=== PATIENT | male | born 1975 | race Caucasian/White ===

== ENCOUNTER 2023-09-01 14:02 | Inpatient (IN) ==
--- NOTE | 2023-09-01 14:13 | ED Triage Note ---
Date of Service September 01, 2023 Provider in Triage Author: Kiki Álvarez History of Present Illness This patient was briefly evaluated while in triage. An abbreviated physical exam was performed. This patient is a 48-year-old Male who presents to the ED for evaluation hx of sarcoidosis illness started this weekend-"head cold" "I feel like I have pneumonia" SOB, pulse ox at home drops into 70s with exertion had some leftover steroids that he started no MD currently, no medications Physical Exam GENERAL: NAD, oxygen 86-90% CARDIOVASCULAR: RRR RESPIRATORY: BS diminished, with wheezes and rhonchi throughout ABDOMEN: BS x 4. Nontender to palpation. Initial orders for labs and / or imaging were placed and patient was placed in the waiting area until a bed is available. Please see further documentation for the full ED course.
[2023-09-01 14:44] LABS: Basophils # (auto) 0.01 K/uL (0.00-0.20); Basophils % (auto) 0.1 %; Eosinophils # (auto) 0.05 K/uL (0.00-0.50); Eosinophils % (auto) 0.7 %; Hematocrit (blood only) 48.9 % (42.0-52.0); Hemoglobin 15.7 g/dl (14.0-18.0); Immature Granulocytes # (auto) 0.07 K/uL (0.01-0.20); Lymphocytes # (auto) 0.78 K/uL (1.20-3.40); Lymphocytes % (auto) 10.8 %; Mean Corpuscular Hemoglobin 27.4 pg (25.0-34.0); Mean Corpuscular Hgb Conc 32.1 g/dL (32.0-36.0); Mean Corpuscular Volume 85.5 fL (80.0-100.0); Mean Platelet Volume 9.7 fL (9.4-12.4); Monocytes % (auto) 5.5 %; Neutrophils # (auto) 5.92 K/uL (1.40-6.50); Neutrophils % (auto) 81.9 %; Platelet Count 224 K/uL (130-400); RDW Coefficient of Variation 13.9 % (11.5-14.5); RDW Standard Deviation 42.5 fL (36.4-46.3); Red Blood Count 5.72 M/uL (4.70-6.10); White Blood Count 7.23 K/ul (4.8-10.8)
[2023-09-01 15:16] LABS: Partial Thromboplastin Time 29 Seconds (21-31); Prothrombin Time 11.1 Seconds (9.0-12.0)
[2023-09-01 15:30] LABS: Alanine Aminotransferase 21 U/L (7-52); Albumin Globulin Ratio 1.4 (0.9-2); Albumin Level 4.6 gm/dl (3.4-5.0); Alkaline Phosphatase 67 U/L (34-104); Anion Gap 7 (3-11); BUN Creatinine Ratio 15.7 (10-20); Bilirubin,Total 0.5 mg/dl (0.2-1.0); Blood Urea Nitrogen 18 mg/dl (6-23); Calcium 9.1 mg/dl (8.6-10.3); Carbon Dioxide 28 mmol/L (21-32); Chloride 105 mmol/L (98-107); Creatinine Clr Calc Pharmacy 112.6 ml/min; Est GFR (African American) 85.5 ml/min; Est GFR (Non-African American) 73.8 ml/min; Globulin 3.2 gm/dl (2.5-4.0); Glucose 96 mg/dl (70-99(Fasting)); Sodium 140 mmol/L (136-145); Total Protein 7.8 gm/dl (6.0-8.3); Troponin I High Sensitivity 9.3 pg/ml (0-20)
[2023-09-01 15:37] LABS: Adenovirus PCR Not Detected (NotDetected); Bordetella parapertussis PCR Not Detected (NotDetected); Bordetella pertussis PCR Not Detected (NotDetected); Chlamydia pneumoniae PCR Not Detected (NotDetected); Coronavirus 229E PCR Not Detected (NotDetected); Coronavirus CoV-2 (COVID19)PCR Not Detected (NotDetected); Coronavirus HKU1 PCR Not Detected (NotDetected); Coronavirus NL63 PCR Not Detected (NotDetected); Coronavirus OC43PCR Not Detected (NotDetected); Human Metapneumovirus PCR Not Detected (NotDetected); Influenza A PCR Not Detected (NotDetected); Influenza B PCR Not Detected (NotDetected); Mycoplasma pneumoniae PCR Not Detected (NotDetected); Parainfluenza Virus 1 PCR Not Detected (NotDetected); Parainfluenza Virus 2 PCR Not Detected (NotDetected); Parainfluenza Virus 3 PCR Not Detected (NotDetected); Parainfluenza Virus 4 PCR Not Detected (NotDetected); Respiratory Syncytial VirusPCR Not Detected (NotDetected); Rhinovirus/Enterovirus PCR Not Detected (NotDetected)
[2023-09-01] MEDS: OPTIRAY 320 125ml IV ONE (15:47)
--- NOTE | 2023-09-01 16:22 | CT Scan Report ---
CT angio chest PE protocol CT DOSE: 1377.7 mGy.cm HISTORY: 48 years-old Male with Dyspnea, hx of sarcoidsis. Acute shortness of breath TECHNIQUE: Multiple CTA images of the chest were obtained after the intravenous administration of 117 ml Optiray. Coronal and sagittal MIPS were obtained from the axial data set and were submitted for review. All measurements were obtained according to NASCET criteria. A dose lowering technique was u tilized adhering to the principles of ALARA. COMPARISON: None. FINDINGS: CTA: The heart is normal in size. No pericardial effusion. Unremarkable thoracic aorta. No central pulmona ry emboli. The segmental and subsegmental branches are not well visualized secondary to contrast bolu s timing and respiratory motion artifact. CT CHEST: Unremarkable thyroid. Calcified mediastinal and hilar lymph nodes. Calcified pleural plaque of the ri ght lung base. No pneumothorax or pleural effusion. Bronchial wall thickening with bibasilar mucous p lugging. Scattered bilateral tree-in-bud nodules are most pronounced within the right lower lobe. The lungs are suboptimally evaluated secondary to respiratory motion artifact. 6 mm solid nodule within the left upper lobe is noted on image 191. Several additional scattered solid pulmonary nodules measu re up to 4-5 mm. Hepatomegaly with hepatic steatosis. No acute upper abdominal abnormality. Unremarkable soft tissues. No acute fracture. IMPRESSION: 1. Limited exam as above. No central pulmonary emboli identified. 2. Bronchial wall thickening with mucus plugging suggestive of bronchitis. 3. Bilateral scattered tree-in-bud and centrilobular nodules are likely infectious or inflammatory. I ndividual scattered solid pulmonary nodules measure up to 6 mm. Three-month follow-up chest CT recomm ended. 4. Calcified lymph nodes compatible with chronic granulomatous disease. ACT 112: Negative or not required by law. The above report was generated using voice recognition software. It may contain grammatical, syntax o r spelling errors. Electronically signed by: Devonte Arnold M.D. 09/01/2023 4:20 PM
--- NOTE | 2023-09-01 18:22 | Emergency Department Note ---
Impression & Plan Acute respiratory failure with hypoxia, Bronchitis ED Provider Note NAME: YOHANA HOLLINS AGE: 48 SEX: M : 1975 ARRIVES VIA: Walk-In INFORMANT: Patient, ED PROVIDER(S): Reggie Hawkins MD CHIEF COMPLAINT: Shortness of breath, congestion HPI: This is a 48-year-old male history of sarcoidosis presenting for shortness of breath. Patient notes that since Wednesday, 5+ days ago, he began having symptoms of congestion, rhinorrhea and cough. He notes that this and previously worsening where he is having exertional dyspnea. He does have a home pulse ox due to the sarcoidosis diagnosis and knows that when he walks around over the past 1 to 2 days his oxygen level drops into the low to mid 80s. He is extremely winded when he walks around. Otherwise he has no chest pain, pleurisy. He notes this felt like his previous pneumonia and/or bronchitis so he began taking leftover levofloxacin and 20 mg of prednisone for the past 2 days. Does not improve his symptoms. ROS: See above HPI for pertinent positives & negatives. A total of 10 systems reviewed and were otherwise negative. PAST MEDICAL HISTORY: See Below PAST SURGICAL HISTORY: See Below FAMILY HISTORY: See Below SOCIAL HISTORY: See Below HOME MEDICATIONS: See Below ALLERGIES: See Below VITALS: See Below PHYSICAL EXAMINATION: General: resting comfortably in no acute distress Head: Normocephalic and atraumatic Eyes: Normal inspection, extraocular muscles intact Ear, nose, throat: Normal external exam Neck: Normal range of motion Respiratory: slight wheezing in all lung lawrence Cardiovascular: Regular rate/rhythm, no murmur GI: soft, nontender, no guarding or rebound Extremities: nontender, moves all extremities Neuro: The patient awake and alert, appropriately conversive, no focal deficits, symmetric faces Skin: Warm, dry, and intact MEDICAL DECISION MAKING: This is a 48-year-old male [facility] history of sarcoidosis presenting for shortness of breath. Workup was Initially started at triage -ECG independently interpreted by me with normal sinus rhythm, rate of 95, first-degree AV block, IN 2018, normal QRS, normal QTc, no ST segment elevations consistent with STEMI criteria -Laboratories reviewed showing no leukocytosis or anemia. Lites is within normal limits. No transaminitis. -Viral panel negative -Patient CTA that does not reveal pulmonary embolism but does reveal signs of bronchitis as well as infectious/inflammatory tree-in-bud opacities. Patient made aware of his incidental findings as well -i ambulated the patient myself around the ER patient dropped down to 82% while walking on a pulse oximeter. He was dyspneic during this time Given albuterol treatment here as well as methylprednisolone 125 mg IV -Patient require admission at this time for his shortness of breath, hypoxia, bronchitis. Differential diagnosis: Pneumonia, bronchitis, PE, dissection, ACS ER treatment provided: See below Diagnostics interpreted by me: ECG: See above Cardiac Monitoring: An order was placed for continuous cardiac monitoring. The monitor shows a rate of 97 with sinus rhythm. Laboratory studies: As stated above and show below. Imaging studies: See below. Past Med/Surg History Social History Smoking Status: Former smoker Hx Alcohol Use: Yes Alcohol type: beer Hx Substance Use: No Preferred Language: Albanian Communication Ability: Effective Soccer Commentator Required: No Beliefs That Will Affect Care: None Current Living Situation: Family Other Information That Helps Us Care for You: No Feels Safe at Home: Yes Safety Concerns: Feels Safe At This Time Allergies Allergies Allergy/AdvReac Type Severity Reaction Status Date / Time No Known Allergies Allergy Verified 09/01/23 20:56 Home Meds Home Medications Medication Instructions Recorded Confirmed No Known Home Medications 09/01/23 09/01/23 Results & Data (ED) Vital Signs Vital Signs - 24 hr 09/01/23 14:12 09/01/23 14:14 09/01/23 18:28 Temperature 37.2 C Temperature Source Temporal Artery Scan Pulse Rate 105 H 89 Pulse Rate from SpO2 Sensor Respiratory Rate 18 27 H Respiratory Effort / Characteristics Non-Labored Non-Labored Respiratory Depth Normal Normal Respiratory Pattern Regular Regular Blood Pressure 185/74 H Blood Pressure Mean 111 Pulse Oximetry 88 L 94 Oxygen Delivery Method Room Air Room Air Nasal Cannula Oxygen Flow Rate 2 Sepsis Recent Fever Within 48 Hours No Sepsis New/Unexplained Change in Mental Status N/A Sepsis Action Taken by Nursing No Action Required Oxygen Flow Rate - Titration Pulse Oximetry Post Tiitration 09/01/23 18:29 09/01/23 18:29 09/01/23 18:30 Temperature Temperature Source Pulse Rate 92 H 94 H Pulse Rate from SpO2 Sensor 90 Respiratory Rate 17 Respiratory Effort / Characteristics Respiratory Depth Respiratory Pattern Blood Pressure 157/104 H Blood Pressure Mean 121 Pulse Oximetry 88 L 94 Oxygen Delivery Method Nasal Cannula Oxygen Flow Rate 0 Sepsis Recent Fever Within 48 Hours Sepsis New/Unexplained Change in Mental Status Sepsis Action Taken by Nursing Oxygen Flow Rate - Titration 2 Pulse Oximetry Post Tiitration 94 09/01/23 19:00 Temperature Temperature Source Pulse Rate 88 Pulse Rate from SpO2 Sensor 86 Respiratory Rate 15 Respiratory Effort / Characteristics Respiratory Depth Respiratory Pattern Blood Pressure 141/93 H Blood Pressure Mean 109 Pulse Oximetry 91 Oxygen Delivery Method Nasal Cannula Oxygen Flow Rate 2 Sepsis Recent Fever Within 48 Hours Sepsis New/Unexplained Change in Mental Status Sepsis Action Taken by Nursing Oxygen Flow Rate - Titration Pulse Oximetry Post Tiitration Laboratory Data 09/01/23 14:24 09/01/23 18:13 Lab Results 09/01/23 09/01/23 09/01/23 Range/Units 14:24 18:13 18:14 WBC 7.23 (4.8-10.8) K/ul RBC 5.72 (4.70-6.10) M/uL Hgb 15.7 (14.0-18.0) g/dl Hct 48.9 (42.0-52.0) % MCV 85.5 (80.0-100.0) fL MCH 27.4 (25.0-34.0) pg MCHC 32.1 (32.0-36.0) g/dL RDW Std Deviation 42.5 (36.4-46.3) fL RDW Coeff of Isabela 13.9 (11.5-14.5) % Plt Count 224 (130-400) K/uL MPV 9.7 (9.4-12.4) fL Immature Gran % (Auto) 1.0 % Neut % (Auto) 81.9 % Lymph % (Auto) 10.8 % [place] % (Auto) 5.5 % Eos % (Auto) 0.7 % Baso % (Auto) 0.1 % Neut # (Auto) 5.92 (1.40-6.50) K/uL Lymph # (Auto) 0.78 L (1.20-3.40) K/uL [place] # (Auto) 0.40 (0.11-0.59) K/uL Eos # (Auto) 0.05 (0.00-0.50) K/uL Baso # (Auto) 0.01 (0.00-0.20) K/uL Immature Gran # (Auto) 0.07 (0.01-0.20) K/uL PT 11.1 (9.0-12.0) Seconds INR 1.0 (0.9-1.1) APTT 29 (21-31) Seconds PTT Ratio 1.0 Sodium 140 (136-145) mmol/L Potassium TNP 3.8 Chloride 105 (98-107) mmol/L Carbon Dioxide 28 (21-32) mmol/L Anion Gap 7 (3-11) BUN 18 (6-23) mg/dl Creatinine 1.15 (0.6-1.4) mg/dl Est Cr Clr Drug Dosing 112.6 ml/min Est GFR ( Amer) 85.5 ml/min Est GFR (Non-Af Amer) 73.8 ml/min BUN/Creatinine Ratio 15.7 (10-20) Glucose 96 (70-99(Fasting)) mg/dl Calcium 9.1 (8.6-10.3) mg/dl Total Bilirubin 0.5 (0.2-1.0) mg/dl AST TNP 24 ALT 21 (7-52) U/L Alkaline Phosphatase 67 (34-104) U/L Troponin I High Sens 9.3 (0-20) pg/ml Total Protein 7.8 (6.0-8.3) gm/dl Albumin 4.6 (3.4-5.0) gm/dl Globulin 3.2 (2.5-4.0) gm/dl Albumin/Globulin Ratio 1.4 (0.9-2) Procalcitonin 0.04 (0-0.5) ng/ml Urine Color Urine Appearance (Clear) Urine pH (4.5-7.5) Ur Specific [place] (1.000-1.030) Urine Protein (Negative) Urine Glucose (UA) (Negative) Urine Ketones (Negative) Urine Blood (Negative) Urine Nitrite (Negative) Urine Bilirubin (Negative) Urine Urobilinogen (Negative) Ur Leukocyte Esterase (Negative) Urine WBC (Auto) (0-5) /hpf Urine RBC (Auto) (0-4) /hpf U Hyaline Cast (Auto) (0-5) /lpf U Epithel Cells (Auto) (0-5) /lpf Urine Bacteria (Auto) (Negative) Adenovirus (PCR) Not Detected (NotDetected) B. pertussis DNA (PCR) Not Detected (NotDetected) B.parapertussis DNA PCR Not Detected (NotDetected) C. pneumoniae DNA (PCR) Not Detected (NotDetected) Coronavirus OC43 (PCR) Not Detected (NotDetected) Coronavirus HKU1 (PCR) Not Detected (NotDetected) Coronavirus 229E (PCR) Not Detected (NotDetected) SARS-CoV-2 (PCR) Not Detected (NotDetected) Coronavirus NL63 (PCR) Not Detected (NotDetected) Human Metapneumovir PCR Not Detected (NotDetected) Influenza Type A (PCR) Not Detected (NotDetected) Influenza Type B (PCR) Not Detected (NotDetected) M. pneumoniae (PCR) Not Detected (NotDetected) Parainfluenza 1 (PCR) Not Detected (NotDetected) Parainfluenza 2 (PCR) Not Detected (NotDetected) Parainfluenza 3 (PCR) Not Detected (NotDetected) Parainfluenza 4 (PCR) Not Detected (NotDetected) RSV (PCR) Not Detected (NotDetected) Entero/Rhino (PCR) Not Detected (NotDetected) 09/01/23 Range/Units 18:25 WBC (4.8-10.8) K/ul RBC (4.70-6.10) M/uL Hgb (14.0-18.0) g/dl Hct (42.0-52.0) % MCV (80.0-100.0) fL MCH (25.0-34.0) pg MCHC (32.0-36.0) g/dL RDW Std Deviation (36.4-46.3) fL RDW Coeff of Isabela (11.5-14.5) % Plt Count (130-400) K/uL MPV (9.4-12.4) fL Immature Gran % (Auto) % Neut % (Auto) % Lymph % (Auto) % [place] % (Auto) % Eos % (Auto) % Baso % (Auto) % Neut # (Auto) (1.40-6.50) K/uL Lymph # (Auto) (1.20-3.40) K/uL [place] # (Auto) (0.11-0.59) K/uL Eos # (Auto) (0.00-0.50) K/uL Baso # (Auto) (0.00-0.20) K/uL Immature Gran # (Auto) (0.01-0.20) K/uL PT (9.0-12.0) Seconds INR (0.9-1.1) APTT (21-31) Seconds PTT Ratio Sodium (136-145) mmol/L Potassium Chloride (98-107) mmol/L Carbon Dioxide (21-32) mmol/L Anion Gap (3-11) BUN (6-23) mg/dl Creatinine (0.6-1.4) mg/dl Est Cr Clr Drug Dosing ml/min Est GFR ( Amer) ml/min Est GFR (Non-Af Amer) ml/min BUN/Creatinine Ratio (10-20) Glucose (70-99(Fasting)) mg/dl Calcium (8.6-10.3) mg/dl Total Bilirubin (0.2-1.0) mg/dl AST ALT (7-52) U/L Alkaline Phosphatase (34-104) U/L Troponin I High Sens (0-20) pg/ml Total Protein (6.0-8.3) gm/dl Albumin (3.4-5.0) gm/dl Globulin (2.5-4.0) gm/dl Albumin/Globulin Ratio (0.9-2) Procalcitonin (0-0.5) ng/ml Urine Color Dark Yellow Urine Appearance Clear (Clear) Urine pH 5.0 (4.5-7.5) Ur Specific [place] > 1.045 H (1.000-1.030) Urine Protein 1+ H (Negative) Urine Glucose (UA) Negative (Negative) Urine Ketones Negative (Negative) Urine Blood Negative (Negative) Urine Nitrite Negative (Negative) Urine Bilirubin Negative (Negative) Urine Urobilinogen Negative (Negative) Ur Leukocyte Esterase Negative (Negative) Urine WBC (Auto) 1-5 (0-5) /hpf Urine RBC (Auto) 0-4 (0-4) /hpf U Hyaline Cast (Auto) 1-5 (0-5) /lpf U Epithel Cells (Auto) 10-20 H (0-5) /lpf Urine Bacteria (Auto) Negative (Negative) Adenovirus (PCR) (NotDetected) B. pertussis DNA (PCR) (NotDetected) B.parapertussis DNA PCR (NotDetected) C. pneumoniae DNA (PCR) (NotDetected) Coronavirus OC43 (PCR) (NotDetected) Coronavirus HKU1 (PCR) (NotDetected) Coronavirus 229E (PCR) (NotDetected) SARS-CoV-2 (PCR) (NotDetected) Coronavirus NL63 (PCR) (NotDetected) Human Metapneumovir PCR (NotDetected) Influenza Type A (PCR) (NotDetected) Influenza Type B (PCR) (NotDetected) M. pneumoniae (PCR) (NotDetected) Parainfluenza 1 (PCR) (NotDetected) Parainfluenza 2 (PCR) (NotDetected) Parainfluenza 3 (PCR) (NotDetected) Parainfluenza 4 (PCR) (NotDetected) RSV (PCR) (NotDetected) Entero/Rhino (PCR) (NotDetected) Administered Medications Albuterol (Albut/Ipratrop 3mg/0.5mg Neb 3 Ml Vial) [address] [facility]; Protocol Stop: 10/01/23 19:39 Last Admin: 09/01/23 19:59 Dose: 3 ml Documented By: JUDI Guaifenesin (Guaifenesin 600 Mg Tabcr) 600 mg PO Q12 OTTO Stop: 10/01/23 20:59 Last Admin: 09/01/23 20:17 Dose: 600 mg Documented By: JENNIFER Heparin Sodium (Porcine) (Heparin Sod 5,000 Unit/0.5 Ml Vial) 5,000 units SQ Q8 OTTO Stop: 10/01/23 21:59 Last Admin: 09/01/23 21:58 Dose: Not Given Documented By: MAT Methylprednisolone 40 mg/ (Syringe) 0.64 mls @ 1.5 mls/min IV TID [facility] Stop: 10/01/23 20:59 Last Admin: 09/01/23 21:59 Dose: 1.5 mls/min Documented By: MAT Miscellaneous Information (Patient's Allergy Info Needs Entered) 1 each N/A Q30M [facility] Stop: 10/01/23 19:44 Last Admin: 09/01/23 20:18 Dose: 1 each Documented By: JENNIFER Discontinued Medications Albuterol (Albuterol 0.5% Neb Soln 2.5 Mg/0.5 Ml Vial) 2.5 mg NEB NOW STA; Protocol Stop: 09/01/23 17:48 Last Admin: 09/01/23 18:30 Dose: 2.5 mg Documented By: GABBY Azithromycin 500 mg/ Dextrose 255 mls @ 127.5 mls/hr IV NOW STA Stop: 09/01/23 21:40 Last Infusion: 09/01/23 22:28 Dose: Infused Documented By: Admin: 09/01/23 20:18 Dose: 127.5 mls/hr Documented By: JENNIFER Ioversol (Optiray 320 125ml) 117 ml IV ONCE ONE Stop: 09/01/23 15:48 Last Admin: 09/01/23 15:47 Dose: 117 ml Documented By: KYE Methylprednisolone (Methylprednisolone 125 Mg/2 Ml Vial) 125 mg IV NOW STA Stop: 09/01/23 17:48 Last Admin: 09/01/23 18:30 Dose: 125 mg Documented By: GABBY Imaging Data Radiologist's Impression: Chest CTA 09/01/23 14:13 CT angio chest PE protocol CT DOSE: 1377.7 mGy.cm HISTORY: 48 years-old Male with Dyspnea, hx of sarcoidsis. Acute shortness of breath TECHNIQUE: Multiple CTA images of the chest were obtained after the intravenous administration of 117 ml Optiray. Coronal and sagittal MIPS were obtained from the axial data set and were submitted for review. All measurements were obtained according to NASCET criteria. A dose lowering technique was utilized adhering to the principles of ALARA. COMPARISON: None. FINDINGS: CTA: The heart is normal in size. No pericardial effusion. Unremarkable thoracic aorta. No central pulmonary emboli. The segmental and subsegmental branches are not well visualized secondary to contrast bolus timing and respiratory motion artifact. CT CHEST: Unremarkable thyroid. Calcified mediastinal and hilar lymph nodes. Calcified pleural plaque of the right lung base. No pneumothorax or pleural effusion. Bronchial wall thickening with bibasilar mucous plugging. Scattered bilateral tree-in-bud nodules are most pronounced within the right lower lobe. The lungs are suboptimally evaluated secondary to respiratory motion artifact. 6 mm solid nodule within the left upper lobe is noted on image 191. Several additional scattered solid pulmonary nodules measure up to 4-5 mm. Hepatomegaly with hepatic steatosis. No acute upper abdominal abnormality. Unremarkable soft tissues. No acute fracture. IMPRESSION: 1. Limited exam as above. No central pulmonary emboli identified. 2. Bronchial wall thickening with mucus plugging suggestive of bronchitis. 3. Bilateral scattered tree-in-bud and centrilobular nodules are likely infectious or inflammatory. Individual scattered solid pulmonary nodules measure up to 6 mm. Three-month follow-up chest CT recommended. 4. Calcified lymph nodes compatible with chronic granulomatous disease. ACT 112: Negative or not required by law. The above report was generated using voice recognition software. It may contain grammatical, syntax or spelling errors. Electronically signed by: Devonte Arnold M.D. 09/01/2023 4:20 PM Discharge Plan Visit Data Chief Complaint: Shortness of Breath/Dyspnea Stated Complaint: SOB ED Provider: Reggie Hawkins Discharge Problem: Acute respiratory failure with hypoxia, Bronchitis Patient Disposition: Admitted As Inpatient Discharge Instructions Interventions: ED Discharge Assessment Last Done: 09/01/23 19:36
[2023-09-01] MEDS: ALBUTEROL 0.5% NEB SOLN 2.5 MG/0.5 ML VIAL NEB STA (18:30)
[2023-09-01] MEDS: methylPREDNISolone 125 MG/2 ML VIAL IV STA (18:30)
[2023-09-01 18:52] LABS: Appearance Urine Clear (Clear); Bacteria Urine Automated Negative (Negative); Bilirubin Urine Negative (Negative); Blood Urine Negative (Negative); Color Urine Dark Yellow; Glucose Urine UA Negative (Negative); Ketones Urine Negative (Negative); Leukocyte Esterase Urine Negative (Negative); Nitrite Urine Negative (Negative); Protein Urine 1+ (Negative); RBC Urine Automated 0-4 /hpf (0-4); Specific Gravity Urine > 1.045 (1.000-1.030); Urobilinogen Urine Negative (Negative)
[2023-09-01 18:56] LABS: Potassium 3.8 mmol/L (3.5-5.1)
--- NOTE | 2023-09-01 19:08 | History & Physical Report ---
Date of Service September 01, 2023 Assessment & Plan (1) Acute respiratory failure with hypoxia: Plan: -Admit to med/tele on continuous pulse oximetry -Presented to the ED with 5 days of progressive URI symptoms and SOB -Noted to be hypoxic at 88% on RA -CTA of the chest with PE protocol was negative for PE but did show signs consistent with bronchitis -Cardiac workup was unremarkable -Has expiratory wheezing in all lung lawrence after receiving an albuterol treatment and 125 mg IV Solu-Medrol in the ED -His acute respiratory failure is likely multifactorial including acute bronchitis vs COPD (undiagnosed) exacerbation, obesity hypoventilation syndrome, and likely undiagnosed RAJNI with his BMI of 45 -At this time we will treat as a COPD exacerbation with: >Azithromycin >40 mg IV Solu-Medrol TID >BID Guaifenesin >Incentive spirometry, flutter therapy >QIDr DuoNebs >Prn O2 to keep SpO2 between 89-92% -Will obtain sputum culture with gram stain -SQ Heparin for DVT PPX -HH diet with 2 gm sodium restriction -AM CBC, BMP, mag, PT/INR (2) Sarcoidosis: Plan: -Previously followed with a Lurer but has not been seen in 4 years due to life stressors -Recommended he ask his new PCP to get him setup with a new Lurer with his hx of Sarcoidosis, possible COPD, and likely undiagnosed RAJNI Plan The patient was discussed with Dr. Eric at the time of the admission History of Present Illness Chief Complaint: SOB Primary Care Provider: Abdoulaye David DO Jaun Can is a 48 year old male with a PMH significant for Sarcoidosis, 30 pack year smoking hx, and morbid obesity who presented to the [facility] ED on 09/01/23 with complaints of SOB. He reportedly had a cough, runny nose, and congestion over the weekend which resolved. On arrival to the ED he was noted to be hypoxic at 88% on RA, hypertensive at 185/74, tachycardic at 105, but otherwise stable. Labs were significant for a lymphocyte count of 0.78, and full respiratory biofire negative. CT angio of the chest with PE protocol was read as "1. Limited exam as above. No central pulmonary emboli identified. 2. Bronchial wall thickening with mucus plugging suggestive of bronchitis. 3. Bilateral scattered tree-in-bud and centrilobular nodules are likely infectious or inflammatory. Individual scattered solid pulmonary nodules measure up to 6 mm. Three-month follow-up chest CT recommended. 4. Calcified lymph nodes compatible with chronic granulomatous disease.". Prior to admission the patient was given an albuterol nebulizer and 125 mcg IV Solu-medrol. At the time of the exam the patient was resting in bed in no acute distress, currently stable on 2L NC. States that he started to develop URI symptoms with congestion, non-productive cough, and SOB on 08/26. He works for a [employer] in [place] and did work over the weekend. Since 08/26 his respiratory symptoms have progressed to the point that he could only walk short distances without getting significantly SOB. States that he previously followed with a Lurer for his Sarcoid but fell off to follow up over the past 4 years due to complicated life situations. Quit smoking approximately 20 years ago but smoked 2 packs per day for approximately 15 years prior. No previous testing for RAJNI but snores frequently at night. The albuterol treatment he received in the ED improved but did not resolve his symptoms. Is a full code and would want his Son, Wayne to make medical decisions for him if he would not make them himself. Please refer to Dr. Eric's attestation for any changes to the treatment plan Allergies Allergy/AdvReac Type Severity Reaction Status Date / Time No Known Allergies Allergy Verified 09/02/23 09:58 Home Medications Medication Instructions Recorded Confirmed Type No Known Home Medications 09/01/23 09/01/23 History Past Med/Surg History Social History Smoking Status: Former smoker Hx Alcohol Use: Yes Alcohol type: beer Hx Substance Use: No Preferred Language: [place]an Communication Ability: Effective Community Re[employer]ment Act Officer Required: No Beliefs That Will Affect Care: None Current Living Situation: Family Other Information That Helps Us Care for You: No Feels Safe at Home: Yes Safety Concerns: Feels Safe At This Time Assistive Devices: Glasses Physical Exam Physical Exam: Physical Exam: General: In no acute distress, stated age, morbidly obese, ill appearing but non-toxic HEENT: Normocephalic, atraumatic, no scleral icterus, pupils around round, symmetrical, and reactive to light, moist mucus membranes, trachea midline, no thyromegaly Chest/Pulm: No respiratory distress, symmetrical chest expansion, expiratory wheezing throughout Cardiac: RRR, no murmurs noted Abdomen: Negative for ascites and bruising, normoactive bowel sounds, soft, non-tender to palpation throughout Musculoskeletal: Symmetrical and without signs of acute trauma, upper and lower extremities with full ROM, no atrophy, spasticity, or flaccidity Extremities: Radial, dorsalis pedis, and posterior tibial pulses are intact and symmetrical, no edema noted in the BL LE's Skin: Warm, dry, no rashes , lesions, or scars noted Neuro: Alert and oriented to person, place, month, year, and president, no focal defects, no tremors noted Psych: No acute distress, calm and cooperative during the exam Results & Data Results & Data Vital Signs (Past 12 Hours) Vital Signs Temp Pulse Resp BP Pulse Ox O2 Del Method O2 Flow Rate 09/01/23 18:30 94 H 09/01/23 18:29 92 H 17 157/104 H 94 09/01/23 18:29 88 L Nasal Cannula 0 09/01/23 18:28 89 27 H 94 Nasal Cannula 2 09/01/23 14:14 Room Air 09/01/23 14:12 37.2 C 105 H 18 185/74 H 88 L Room Air Laboratory Results Abnormal lab results 09/01/23 09/01/23 Range/Units 14:24 18:25 Lymph # (Auto) 0.78 L (1.20-3.40) K/uL Ur Specific [place] > 1.045 H (1.000-1.030) Urine Protein 1+ H (Negative) U Epithel Cells (Auto) 10-20 H (0-5) /lpf Diagnostic Findings Chest CTA 09/01/23 14:13 CT angio chest PE protocol CT DOSE: 1377.7 mGy.cm HISTORY: 48 years-old Male with Dyspnea, hx of sarcoidsis. Acute shortness of breath TECHNIQUE: Multiple CTA images of the chest were obtained after the intravenous administration of 117 ml Optiray. Coronal and sagittal MIPS were obtained from the axial data set and were submitted for review. All measurements were obtained according to NASCET criteria. A dose lowering technique was utilized adhering to the principles of ALARA. COMPARISON: None. FINDINGS: CTA: The heart is normal in size. No pericardial effusion. Unremarkable thoracic aorta. No central pulmonary emboli. The segmental and subsegmental branches are not well visualized secondary to contrast bolus timing and respiratory motion artifact. CT CHEST: Unremarkable thyroid. Calcified mediastinal and hilar lymph nodes. Calcified pleural plaque of the right lung base. No pneumothorax or pleural effusion. Bronchial wall thickening with bibasilar mucous plugging. Scattered bilateral tree-in-bud nodules are most pronounced within the right lower lobe. The lungs are suboptimally evaluated secondary to respiratory motion artifact. 6 mm solid nodule within the left upper lobe is noted on image 191. Several additional scattered solid pulmonary nodules measure up to 4-5 mm. Hepatomegaly with hepatic steatosis. No acute upper abdominal abnormality. Unremarkable soft tissues. No acute fracture. IMPRESSION: 1. Limited exam as above. No central pulmonary emboli identified. 2. Bronchial wall thickening with mucus plugging suggestive of bronchitis. 3. Bilateral scattered tree-in-bud and centrilobular nodules are likely infectious or inflammatory. Individual scattered solid pulmonary nodules measure up to 6 mm. Three-month follow-up chest CT recommended. 4. Calcified lymph nodes compatible with chronic granulomatous disease. ACT 112: Negative or not required by law. The above report was generated using voice recognition software. It may contain grammatical, syntax or spelling errors. Electronically signed by: Devonte Arnold M.D. 09/01/2023 4:20 PM ECG Additional Comments: Sinus rhythm with 1st degree A-V block Otherwise normal ECG No previous ECGs available Code Status & VTE Plan Code Status Full code VTE Prophylaxis Plan VTE Prophylaxis will be ordered: Yes Supervising Physician Co-Signing Physician Notes Attending addendum: I have physically seen this patient, have supervised the CHHAYA's activities, and agree with the H&P unless as otherwise noted. Assessment and Plan: Acute respiratory failure with hypoxia/sarcoidosis/bronchitis- There may be an element of both Admit to medical telemetry Pulse ox 88% on room air CTA PE protocol was negative for PE but did show chronic bronchitis Status post methylprednisolone 125 mg IV, and DuoNeb treatment from the ED Azithromycin 500 mg IV daily Methylprednisolone 40 mg IV every 8 hours Guaifenesin extended release 600 mg p.o. twice daily Duonebs every 4 hours while awake and every 2 hours when necessary. Target pulse ox 90-92% Follow sputum culture and sensitivity, Gram stain PG Care Time/CCT Total # of Minutes Spent Total Time Spent with Patient: Total time spent is greater than 50% in coordination of care (as documented) at patient's floor/unit and/or counseling patient: [place] [address] INT INP/OBS CARE MIN Patient Type New Medical Decision Making High Complexity Diagnoses Acute respiratory failure with hypoxia J96.01 Sarcoidosis D86.9
[2023-09-01] MEDS ORDERED: Patient's ALLERGY Info needs ENTERED SCH (19:45)
[2023-09-01] MEDS: ALBUT/IPRATROP 3MG/0.5MG NEB 3 ML VIAL NEB SCH (19:59)
[2023-09-01] MEDS: guaiFENesin 600 MG TABCR PO SCH (20:17)
[2023-09-01] MEDS: Patient's ALLERGY Info needs ENTERED SCH (20:18)
[2023-09-01] MEDS: AZITHROMYCIN 500 MG in DEXTROSE 5% 250 ML IV STA (20:18)
[2023-09-01 20:51] LABS: Base Excess ABG 1.2 mEq/L (-9-1.8); HCO3 ABG 27 mmol/L (19-24); Oxygen Saturation ABG 91.8 % (90-95); PCO2 ABG 44 mmHg (35-46); PO2 ABG 66 mmHg (80-95); pH ABG 7.39 (7.35-7.45)
[2023-09-01 20:52] LABS: Allen Test Pos (Pos)
[2023-09-01] MEDS: HEPARIN SOD 5,000 UNIT/0.5 ML VIAL SQ SCH (21:58)
[2023-09-01] MEDS: methylPREDNISolone 40 MG in SYRINGE 0 ML IV SCH (21:59)
[2023-09-02 06:49] LABS: Hematocrit (blood only) 44.7 % (42.0-52.0); Hemoglobin 14.8 g/dl (14.0-18.0); Mean Corpuscular Hemoglobin 28.1 pg (25.0-34.0); Mean Corpuscular Hgb Conc 33.1 g/dL (32.0-36.0); Mean Platelet Volume 9.9 fL (9.4-12.4); Platelet Count 244 K/uL (130-400); RDW Coefficient of Variation 13.6 % (11.5-14.5); RDW Standard Deviation 42.3 fL (36.4-46.3); Red Blood Count 5.26 M/uL (4.70-6.10); White Blood Count 9.62 K/ul (4.8-10.8)
[2023-09-02 07:11] LABS: BUN Creatinine Ratio 17.4 (10-20); Calcium 9.1 mg/dl (8.6-10.3); Creatinine Clr Calc Pharmacy 118.8 ml/min; Est GFR (African American) 91.2 ml/min; Est GFR (Non-African American) 78.7 ml/min; Potassium 4.7 mmol/L (3.5-5.1)
[2023-09-02] MEDS ORDERED: methylPREDNISolone 125 MG/2 ML VIAL IV SCH (09:00)
--- NOTE | 2023-09-02 15:37 | Hospitalist Progress Note ---
Date of Service September 02, 2023 Assessment & Plan (1) Acute respiratory failure with hypoxia: Plan: -Admit to med/tele on continuous pulse oximetry -Presented to the ED with 5 days of progressive URI symptoms and SOB -Noted to be hypoxic at 88% on RA -CTA of the chest with PE protocol was negative for PE but did show signs consistent with bronchitis -Cardiac workup was unremarkable -Has expiratory wheezing in all lung [place] after receiving an albuterol treatment and 125 mg IV Solu-Medrol in the ED -His acute respiratory failure is likely multifactorial including acute bronchitis vs COPD (undiagnosed) exacerbation, obesity hypoventilation syndrome, and likely undiagnosed RAJNI with his BMI of 45 -At this time we will treat as a COPD exacerbation with: >Azithromycin > Solu-Medrol. Reduced to 40 mg IV twice daily >BID Guaifenesin >Incentive spirometry, flutter therapy >QIDr DuoNebs >Prn O2 to keep SpO2 between 89-92% -Follow sputum culture with gram stain (2) Sarcoidosis: Plan: -Previously followed with a Help Desk Operator but has not been seen in 4 years due to life stressors -Recommended he ask his new PCP to get him setup with a new Help Desk Operator with his hx of Sarcoidosis, possible COPD, and likely undiagnosed RAJNI Admission and Anticipated Discharge Date Admission Date: September 01, 2023 Subjective Patient feels better overall. Breathing better. Wheezing less. Review of Systems Review of Systems: All systems reviewed & are unremarkable except as noted in Subjective Physical Exam Physical Exam: General: Awake, conversant Heart: S1, S2/regular rate and rhythm, no murmur rubs or gallops Lungs: Bilateral wheezing noted, mild. Normal effort Abdomen: Soft/nontender/nondistended. No hepatosplenomegaly Extremities: No clubbing/cyanosis. No edema Behavior: Appropriate, cooperative Results & Data Results & Data Vital Signs (Past 12 Hours) Vital Signs Temp Pulse Pulse Resp BP Pulse Ox O2 Del Method 09/02/23 12:12 36.2 C L 97 H 16 170/91 H 93 Nasal Cannula 09/02/23 11:31 92 H 20 95 Nasal Cannula 09/02/23 10:47 Nasal Cannula 09/02/23 08:02 36.4 C L 73 16 136/78 92 Nasal Cannula 09/02/23 07:19 71 16 96 Nasal Cannula 09/02/23 06:00 60 09/02/23 04:13 36.5 C 91 H 16 164/86 H 94 Nasal Cannula O2 Flow Rate 09/02/23 12:12 2 09/02/23 11:31 2 09/02/23 10:47 2 09/02/23 08:02 2 09/02/23 07:19 2 09/02/23 06:00 09/02/23 04:13 2 Laboratory Results Abnormal lab results 09/01/23 09/01/23 09/02/23 Range/Units 18:25 20:40 06:04 ABG pO2 66 L (80-95) mmHg ABG HCO3 27 H (19-24) mmol/L Glucose 157 H (70-99(Fasting)) mg/dl Ur Specific [place] > 1.045 H (1.000-1.030) Urine Protein 1+ H (Negative) U Epithel Cells (Auto) 10-20 H (0-5) /lpf Diagnostic Findings Chest CTA 09/01/23 14:13 CT angio chest PE protocol CT DOSE: 1377.7 mGy.cm HISTORY: 48 years-old Male with Dyspnea, hx of sarcoidsis. Acute shortness of breath TECHNIQUE: Multiple CTA images of the chest were obtained after the intravenous administration of 117 ml Optiray. Coronal and sagittal MIPS were obtained from the axial data set and were submitted for review. All measurements were obtained according to NASCET criteria. A dose lowering technique was utilized adhering to the principles of ALARA. COMPARISON: None. FINDINGS: CTA: The heart is normal in size. No pericardial effusion. Unremarkable thoracic aorta. No central pulmonary emboli. The segmental and subsegmental branches are not well visualized secondary to contrast bolus timing and respiratory motion artifact. CT CHEST: Unremarkable thyroid. Calcified mediastinal and hilar lymph nodes. Calcified pleural plaque of the right lung base. No pneumothorax or pleural effusion. Bronchial wall thickening with bibasilar mucous plugging. Scattered bilateral tree-in-bud nodules are most pronounced within the right lower lobe. The lungs are suboptimally evaluated secondary to respiratory motion artifact. 6 mm solid nodule within the left upper lobe is noted on image 191. Several additional scattered solid pulmonary nodules measure up to 4-5 mm. Hepatomegaly with hepatic steatosis. No acute upper abdominal abnormality. Unremarkable soft tissues. No acute fracture. IMPRESSION: 1. Limited exam as above. No central pulmonary emboli identified. 2. Bronchial wall thickening with mucus plugging suggestive of bronchitis. 3. Bilateral scattered tree-in-bud and centrilobular nodules are likely infectious or inflammatory. Individual scattered solid pulmonary nodules measure up to 6 mm. Three-month follow-up chest CT recommended. 4. Calcified lymph nodes compatible with chronic granulomatous disease. ACT 112: Negative or not required by law. The above report was generated using voice recognition software. It may contain grammatical, syntax or spelling errors. Electronically signed by: Devonte Arnold M.D. 09/01/2023 4:20 PM PG Care Time/CCT Total # of Minutes Spent Total Time Spent with Patient: Total time spent is greater than 50% in coordination of care (as documented) at patient's floor/unit and/or counseling patient: Coding Level of Care Code 28522 SUB INP/OBS CARE 2/35MIN Diagnoses Acute respiratory failure with hypoxia J96.01 Sarcoidosis D86.9
[2023-09-02] MEDS: methylPREDNISolone 40 MG in SYRINGE 0 ML IV SCH (20:35)
[2023-09-02] MEDS: AZITHROMYCIN 500 MG in DEXTROSE 5% 250 ML IV SCH (20:35)
[2023-09-03 06:36] LABS: Hematocrit (blood only) 46.8 % (42.0-52.0); Mean Corpuscular Hemoglobin 27.8 pg (25.0-34.0); Mean Corpuscular Hgb Conc 32.1 g/dL (32.0-36.0); Mean Corpuscular Volume 86.8 fL (80.0-100.0); Mean Platelet Volume 9.8 fL (9.4-12.4); Platelet Count 274 K/uL (130-400); RDW Coefficient of Variation 14.1 % (11.5-14.5); RDW Standard Deviation 43.8 fL (36.4-46.3); Red Blood Count 5.39 M/uL (4.70-6.10); White Blood Count 15.58 K/ul (4.8-10.8)
[2023-09-03 07:02] LABS: BUN Creatinine Ratio 20.2 (10-20); Calcium 8.9 mg/dl (8.6-10.3); Creatinine Clr Calc Pharmacy 124.5 ml/min; Est GFR (African American) 96.6 ml/min; Est GFR (Non-African American) 83.3 ml/min; Potassium 4.9 mmol/L (3.5-5.1)
--- NOTE | 2023-09-03 15:07 | Hospitalist Progress Note ---
Date of Service September 03, 2023 Assessment & Plan (1) Acute respiratory failure with hypoxia: Plan: -Admit to med/tele on continuous pulse oximetry -Presented to the ED with 5 days of progressive URI symptoms and SOB -Noted to be hypoxic at 88% on RA -CTA of the chest with PE protocol was negative for PE but did show signs consistent with bronchitis -Cardiac workup was unremarkable -Has expiratory wheezing in all lung [place] after receiving an albuterol treatment and 125 mg IV Solu-Medrol in the ED -His acute respiratory failure is likely multifactorial including acute bronchitis vs COPD (undiagnosed) exacerbation, obesity hypoventilation syndrome, and likely undiagnosed RAJNI with his BMI of 45 -At this time we will treat as a COPD exacerbation with: >Azithromycin > Solu-Medrol. Reduced to 40 mg IV once daily. Plan to switch to p.o. prednisone starting tomorrow >BID Guaifenesin >Incentive spirometry, flutter therapy >QIDr DuoNebs >Prn O2 to keep SpO2 between 89-92% -Follow sputum culture with gram stain (2) Sarcoidosis: Plan: -Previously followed with a Hand Cloth Cutter but has not been seen in 4 years due to life stressors -Recommended he ask his new PCP to get him setup with a new Hand Cloth Cutter with his hx of Sarcoidosis, possible COPD, and likely undiagnosed RAJNI Plan Likely discharge tomorrow Admission and Anticipated Discharge Date Admission Date: September 01, 2023 Subjective Patient feels well. Breathing better. Wheezing less. Review of Systems Review of Systems: All systems reviewed & are unremarkable except as noted in Subjective Physical Exam Physical Exam: General: Awake, conversant Heart: S1, S2/regular rate and rhythm, no murmur rubs or gallops Lungs: Bilateral wheezing noted, mild. Normal effort Abdomen: Soft/nontender/nondistended. No hepatosplenomegaly Extremities: No clubbing/cyanosis. No edema Behavior: Appropriate, cooperative Results & Data Results & Data Vital Signs (Past 12 Hours) Vital Signs Temp Pulse Pulse Resp BP Pulse Ox O2 Del Method 09/03/23 12:08 36.6 C 89 16 162/92 H 90 Room Air 09/03/23 11:13 85 18 94 Nasal Cannula 09/03/23 09:28 Nasal Cannula 09/03/23 09:26 58 L 09/03/23 08:25 72 16 162/90 H 94 Room Air 09/03/23 07:41 94 H 20 97 Nasal Cannula 09/03/23 03:05 36.5 C 69 18 164/91 H 95 Room Air O2 Flow Rate 09/03/23 12:08 09/03/23 11:13 1 09/03/23 09:28 2 09/03/23 09:26 09/03/23 08:25 09/03/23 07:41 2 09/03/23 03:05 Laboratory Results Abnormal lab results 09/03/23 Range/Units 05:53 WBC 15.58 H (4.8-10.8) K/ul BUN/Creatinine Ratio 20.2 H (10-20) Glucose 136 H (70-99(Fasting)) mg/dl PG Care Time/CCT Total # of Minutes Spent Total Time Spent with Patient: Total time spent is greater than 50% in coordination of care (as documented) at patient's floor/unit and/or counseling patient: Coding Level of Care Code 65396 SUB INP/OBS CARE 2/35MIN Diagnoses Acute respiratory failure with hypoxia J96.01 Sarcoidosis D86.9
--- NOTE | 2023-09-04 00:54 | Electrocardiogram Report ---
Test Reason : Blood Pressure : / mmHG Vent. Rate : 095 BPM Atrial Rate : 095 BPM P-R Int : 218 ms QRS Dur : 078 ms QT Int : 344 ms P-R-T Axes : 055 -22 060 degrees QTc Int : 432 ms Sinus rhythm with 1st degree A-V block Otherwise normal ECG No previous ECGs available Confirmed by Wayne Andrade ([id number]) on 09/04/2023 12:54:24 AM Referred By: Confirmed By:Wayne Andrade
[2023-09-04 06:11] LABS: Hematocrit (blood only) 46.4 % (42.0-52.0); Hemoglobin 15.1 g/dl (14.0-18.0); Mean Corpuscular Hemoglobin 28.1 pg (25.0-34.0); Mean Corpuscular Hgb Conc 32.5 g/dL (32.0-36.0); Mean Corpuscular Volume 86.2 fL (80.0-100.0); Mean Platelet Volume 9.6 fL (9.4-12.4); Platelet Count 248 K/uL (130-400); RDW Coefficient of Variation 14.4 % (11.5-14.5); RDW Standard Deviation 44.8 fL (36.4-46.3); Red Blood Count 5.38 M/uL (4.70-6.10); White Blood Count 12.03 K/ul (4.8-10.8)
[2023-09-04 06:30] LABS: BUN Creatinine Ratio 21.8 (10-20); Calcium 8.6 mg/dl (8.6-10.3); Creatinine Clr Calc Pharmacy 104.7 ml/min; Est GFR (African American) 78.1 ml/min; Est GFR (Non-African American) 67.4 ml/min; Potassium 4.3 mmol/L (3.5-5.1)
[2023-09-04] MEDS: predniSONE 20 MG TAB PO SCH (08:10)
[2023-09-04] MEDS ORDERED: methylPREDNISolone 40 MG in SYRINGE 0 ML IV SCH (09:00)
--- NOTE | 2023-09-04 12:29 | Discharge Summary ---
Date of Service September 04, 2023 Admission HPI Per Admitting Provider Jaun Can is a 48 year old male with a PMH significant for Sarcoidosis, 30 pack year smoking hx, and morbid obesity who presented to the [facility] ED on 09/01/23 with complaints of SOB. He reportedly had a cough, runny nose, and congestion over the weekend which resolved. On arrival to the ED he was noted to be hypoxic at 88% on RA, hypertensive at 185/74, tachycardic at 105, but otherwise stable. Labs were significant for a lymphocyte count of 0.78, and full respiratory biofire negative. CT angio of the chest with PE protocol was read as "1. Limited exam as above. No central pulmonary emboli identified. 2. Bronchial wall thickening with mucus plugging suggestive of bronchitis. 3. Bilateral scattered tree-in-bud and centrilobular nodules are likely infectious or inflammatory. Individual scattered solid pulmonary nodules measure up to 6 mm. Three-month follow-up chest CT recommended. 4. Calcified lymph nodes compatible with chronic granulomatous disease.". Prior to admission the patient was given an albuterol nebulizer and 125 mcg IV Solu-medrol. At the time of the exam the patient was resting in bed in no acute distress, currently stable on 2L NC. States that he started to develop URI symptoms with congestion, non-productive cough, and SOB on 08/26. 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 Since 08/26 his respiratory symptoms have progressed to the point that he could only walk short distances without getting significantly SOB. States that he previously followed with a Behavioral Interventionist for his Sarcoid but fell off to follow up over the past 4 years due to complicated life situations. Quit smoking approximately 20 years ago but smoked 2 packs per day for approximately 15 years prior. No previous testing for RAJNI but snores frequently at night. The albuterol treatment he received in the ED improved but did not resolve his symptoms. Is a full code and would want his Son, Wayne to make medical decisions for him if he would not make them himself. Please refer to Dr. Eric's attestation for any changes to the treatment plan Admission Exam Per Admitting Provider General: In no acute distress, stated age, morbidly obese, ill appearing but non-toxic HEENT: Normocephalic, atraumatic, no scleral icterus, pupils around round, symm etrical, and reactive to light, moist mucus membranes, trachea midline, no thyromegaly Chest/Pulm: No respiratory distress, symmetrical chest expansion, expiratory wheezing throughout Cardiac: RRR, no murmurs noted Abdomen: Negative for ascites and bruising, normoactive bowel sounds, soft, non- tender to palpation throughout Musculoskeletal: Symmetrical and without signs of acute trauma, upper and lower extremities with full ROM, no atrophy, spasticity, or flaccidity Extremities: Radial, dorsalis pedis, and posterior tibial pulses are intact and symmetrical, no edema noted in the BL LE's Skin: Warm, dry, no rashes , lesions, or scars noted Neuro: Alert and oriented to person, place, month, year, and president, no focal defects, no tremors noted Psych: No acute distress, calm and cooperative during the exam Principal Diagnosis Acute bronchitis versus COPD exacerbation History of sarcoidosis Discharge Exam General: Awake, conversant Heart: S1, S2/regular rate and rhythm, no murmur rubs or gallops Lungs: Bilateral wheezing noted, mild. Normal effort Abdomen: Soft/nontender/nondistended. No hepatosplenomegaly Extremities: No clubbing/cyanosis. No edema Behavior: Appropriate, cooperative Discharge Data Allergies Allergy/AdvReac Type Severity Reaction Status Date / Time No Known Allergies Allergy Verified 09/02/23 09:58 Consultations 09/01/23 18:07 ED Decision to Admit Stat Ordered Studies 09/01/23 14:13 CT angio chest PE protocol Stat Hospital Course (1) Acute respiratory failure with hypoxia: -Admit to med/tele on continuous pulse oximetry -Presented to the ED with 5 days of progressive URI symptoms and SOB -Noted to be hypoxic at 88% on RA -CTA of the chest with PE protocol was negative for PE but did show signs consistent with bronchitis -Cardiac workup was unremarkable -Has expiratory wheezing in all lung lawrence after receiving an albuterol treatment and 125 mg IV Solu-Medrol in the ED -His acute respiratory failure is likely multifactorial including acute bronchitis vs COPD (undiagnosed) exacerbation, obesity hypoventilation syndrome, and likely undiagnosed RAJNI with his BMI of 45 -At this time we treated him as a COPD exacerbation with: >Azithromycin >IV Solu-Medrol >BID Guaifenesin >Incentive spirometry, flutter therapy >QIDr DuoNebs >Prn O2 to keep SpO2 between 89-92% Clinically improved Breathing well today. Not coughing much anymore Being discharged on p.o. prednisone Needing 2 L of oxygen upon ambulation which has been arranged for at home (2) Sarcoidosis: -Previously followed with a Behavioral Interventionist but has not been seen in 4 years due to life stressors -Recommended he ask his new PCP to get him setup with a new Behavioral Interventionist with his hx of Sarcoidosis, possible COPD, and likely undiagnosed RAJNI Total Time Total Time Spent Total Time Spent (In Minutes): 35 Discharge Plan Discharge Items Patient Disposition: Home - Self-Care Reason For Visit: SOB, HYPOXIA Discharge Diagnosis: Acute bronchitis versus COPD exacerbation Activity: Resume your previous activity Non-emergency contact: Primary Care Provider Call non-emergency contact if: you have any medication questions and your symptoms worsen Follow-up/Referrals: Abdoulaye David, [Primary Care Provider] - Diet: Regular Addtl Attending Provider Instructions: Advised to follow-up with PCP in 1 week Your PCP may need to refer you to a new resident athletic trainer Pending Studies at Discharge: No Stand-Alone Forms: My [facility] Medications and DC Order Prescriptions: New prednisone 10 mg tablet 10 mg PO DAILY Qty: 20 0RF Rx Instructions: 4 tabs for 2 days, then drop by 1 tab every 2 days, then stop azithromycin 500 mg tablet 500 mg PO DAILY 2 Days Qty: 2 0RF Rx Instructions: start on day 2 of therapy Discharge Orders: Discharge Order (Routine); Ordered 09/04/23 Ordered By: Shalonda Camara Admission Data Admit Date/Time: 09/01/23 19:17 Attending Provider: Shalonda Camara Admit Provider: [place] Eric Primary Care Provider: Abdoulaye David Other Providers: [place] Eric Coding Level of Care Code 94329 INP/OBS DISCH >30 MIN Diagnoses Acute respiratory failure with hypoxia J96.01 Sarcoidosis D86.9
== END 2023-09-04 11:31 | disposition home or self-care (01) | DRG 189 ==
LOC: ED 14:02 → SUATTDRO 19:17 → EDINP 19:17 → 2N 19:36